=== PATIENT | female | born 1980 | race American Indian/Alaskan Native ===

== ENCOUNTER 2017-11-16 18:31 | Emergency (ER) | payer OTHER ==
[2017-11-16 18:42] VITALS: BP 148/90
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
[2017-11-16] MEDS ORDERED: NORCO 5/325 PO ONE (19:50)
--- NOTE | 2017-11-16 22:43 | XRay Report ---
FINAL REPORT PROCEDURE: XR CLAVICLE LT TECHNIQUE: LEFT clavicle radiographs. HISTORY: bruising and pain COMPARISON: No prior studies are available for comparison. FINDINGS: Fracture (s) and/or Dislocation(s): None. Soft tissues:Normal. Bone mineralization:Normal. Foreign bodies: None. IMPRESSION: Normal Impression.
--- NOTE | 2017-11-16 22:44 | XRay Report ---
FINAL REPORT PROCEDURE: XR SPINE THORACIC 2V TECHNIQUE: Thoracic spine radiographs, including AP and lateral projections. CPT 70745 HISTORY: back pain COMPARISON: No prior studies are available for comparison. FINDINGS: Alignment: Subtle dextroscoliosis is noted involving upper thoracic spine. Vertebral body height: Normal . Disk spaces: Normal . Fracture(s): None . Bone mineralization: Normal . IMPRESSION: No acute abnormality.
--- NOTE | 2017-11-16 22:47 | XRay Report ---
FINAL REPORT PROCEDURE: XR SPINE CERVICAL 2-3V TECHNIQUE: Cervical spine radiographs, AP, lateral, and open-mouth odontoid views. CPT 82703 HISTORY: bilateral trapezius tenderness COMPARISON: No prior studies are available for comparison. FINDINGS: Prevertebral soft tissues: Normal . Alignment: There is loss of cervical lordosis.. Vertebral body heights/Disk spaces: Normal . Fracture(s): None . Facets: Normal . Bone mineralization: Normal . IMPRESSION: Straightening of the cervical spine is most likely secondary to spasm or positioning. Otherwise negative study.
== END 2017-11-16 23:30 | disposition home or self-care (01) ==
LOC: ED 18:31
DX: S29.012A Strain of muscle and tendon of back wall of thorax, initial encounter (principal); M54.2 Cervicalgia; M62.838 Other muscle spasm; F17.200 Nicotine dependence, unspecified, uncomplicated; Z79.899 Other long term (current) drug therapy; V49.09XA Driver injured in collision with other motor vehicles in nontraffic accident, initial encounter; Y93.89 Activity, other specified; Y99.8 Other external cause status; Y92.488 Other paved roadways as the place of occurrence of the external cause
CPT/HCPCS: 72040; 72070

== ENCOUNTER 2020-05-07 12:38 | Emergency (ER) | payer SELFPAY ==
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
[2020-05-07 14:15] LABS: Basophils % (Auto) 0.6 % (0.0-1.8); Eosinophils # (Auto) 0.2 K/mm3 (0.0-0.4); Eosinophils % (Auto) 2.8 % (0.0-4.3); Hematocrit 29.9 % (30.3-42.9); Hemoglobin 9.3 gm/dl (10.1-14.3); Lymphocytes # (Auto) 1.8 K/mm3 (1.2-5.4); Lymphocytes % (Auto) 30.8 % (13.4-35.0); Mean Corpuscular HGB Conc 31 % (30-34); Mean Corpuscular Volume 79 fl (79-97); Monocytes # (Auto) 0.3 K/mm3 (0.0-0.8); Monocytes % (Auto) 4.8 % (0.0-7.3); Platelet Count 183 K/mm3 (140-440); Red Blood Count 3.79 M/mm3 (3.65-5.03)
[2020-05-07 14:16] LABS: Red Cell Distribution Width 21.2 % (13.2-15.2)
[2020-05-07 14:35] LABS: Alanine Aminotransferase 11 units/L (7-56); Albumin 4.2 g/dL (3.9-5); Blood Urea Nitrogen 15 mg/dL (7-17); Calcium 9.4 mg/dL (8.4-10.2); Hemolysis Index 9
--- NOTE | 2020-05-07 14:52 | XRay Report ---
CHEST 2 VIEWS INDICATION / CLINICAL INFORMATION: Chest Pain. FINDINGS: SUPPORT DEVICES: None. HEART / MEDIASTINUM: No significant abnormality. LUNGS / PLEURA: No significant pulmonary or pleural abnormality. No pneumothorax. ADDITIONAL FINDINGS: No significant additional findings. IMPRESSION: 1. No acute findings. Signer Name: Artie Peterson MD Signed: 05/07/2020 2:47 PM Workstation Name: [id number]
[2020-05-07 15:01] LABS: BUN/Creatinine Ratio 25
--- NOTE | 2020-05-07 16:57 | Emergency Department Report ---
ED Chest Pain HPI - General Chief Complaint: Chest Pain Stated Complaint: hypertension Time Seen by Provider: 05/07/20 13:20 Source: patient Mode of arrival: Ambulatory Limitations: No Limitations - History of Present Illness Initial Comments: Patient is 39 years old female with no significant past medical history. Patient stated that she was diagnosed with COVID-19 a month ago. Patient stated that since then she has been having a right chest pain. Patient described her chest pain as sharp with no radiation intermittent. Patient stated that pain increases with movement and improved with remaining still. Patient denied any cough, fever or chills. No shortness of breath. MD Complaint: chest pain -: month(s) Pain Location: right chest Pain Radiation: none Severity: moderate Severity scale (0 -10): 4 Quality: sharp Improves With: remaining still Worsens With: movement - Related Data Previous Rx's Medication Instructions Recorded Last Taken Type Cyclobenzaprine [Flexeril 10 MG 10 mg PO TID PRN #15 tablet 11/16/17 Unknown Rx TAB] Ibuprofen [Motrin 800 MG tab] 800 mg PO Q8HR PRN #15 tablet 11/16/17 Unknown Rx Allergies Allergy/AdvReac Type Severity Reaction Status Date / Time No Known Allergies Allergy Unverified 11/16/17 18:41 Heart Score - HEART Score History: Slightly suspicious EKG: Normal Age: < 45 Risk factors: No known risk factors Troponin: < normal limit HEART Score: 0 - Critical Actions Critical Actions: 0-3 pts:0.9-1.7%risk of adverse cardiac event.Candidate for discharge ED Review of Systems ROS: Stated complaint: hypertension Other details as noted in HPI Comment: All other systems reviewed and negative Constitutional: denies: chills, fever Respiratory: denies: cough, orthopnea, shortness of breath, SOB with exertion, SOB at rest Cardiovascular: chest pain. denies: palpitations, dyspnea on exertion Gastrointestinal: denies: abdominal pain, nausea, vomiting Musculoskeletal: denies: back pain Neurological: denies: headache, weakness, numbness, paresthesias, confusion, abnormal gait ED Past Medical Hx - Past Medical History Previous Medical History?: No - Surgical History Past Surgical History?: No - Social History Smoking Status: Current Every Day Smoker Substance Use Type: None - Medications Home Medications: Home Medications Medication Instructions Recorded Confirmed Last Taken Type Cyclobenzaprine [Flexeril 10 MG 10 mg PO TID PRN #15 tablet 11/16/17 Unknown Rx TAB] Ibuprofen [Motrin 800 MG tab] 800 mg PO Q8HR PRN #15 tablet 11/16/17 Unknown Rx ED Physical Exam - General Limitations: No Limitations General appearance: alert, in no apparent distress - Head Head exam: Present: atraumatic, normocephalic, normal inspection - Eye Eye exam: Present: normal appearance, PERRL - ENT ENT exam: Present: normal exam, normal orophraynx, mucous membranes moist - Neck Neck exam: Present: normal inspection, full ROM. Absent: tenderness, meningismus - Respiratory Respiratory exam: Present: normal lung sounds bilaterally, chest wall tenderness - Cardiovascular Cardiovascular Exam: Present: regular rate, normal rhythm, normal heart sounds - GI/Abdominal GI/Abdominal exam: Present: soft, normal bowel sounds. Absent: distended, tenderness, guarding, rebound, rigid, organomegaly, mass, bruit, pulsatile mass - Extremities Exam Extremities exam: Present: normal inspection, full ROM, normal capillary refill. Absent: pedal edema, calf tenderness - Back Exam Back exam: Present: normal inspection, full ROM. Absent: CVA tenderness (R), CVA tenderness (L) - Neurological Exam Neurological exam: Present: alert, oriented X3, CN II-XII intact - Psychiatric Psychiatric exam: Present: normal affect - Skin Skin exam: Present: warm, intact, normal color ED Course Vital Signs 05/07/20 12:59 Temperature 98.4 F Pulse Rate 73 Respiratory 16 Rate Blood Pressure 141/99 [Right] O2 Sat by Pulse 99 Oximetry ED Medical Decision Making - Lab Data Result diagrams: 05/07/20 13:38 05/07/20 13:38 - EKG Data -: EKG Interpreted by Ca EKG shows normal: sinus rhythm Rate: normal - EKG Data Interpretation: no acute changes - Radiology Data Radiology results: report reviewed - Medical Decision Making Patient is 39 years old female with no significant past medical history. Patient stated that she was diagnosed with COVID-19 a month ago. Patient stated that since then she has been having a right chest pain. Patient described her chest pain as sharp with no radiation intermittent. Patient stated that pain increases with movement and improved with remaining still. Patient denied any cough, fever or chills. No shortness of breath. EKG is unremarkable. Chest x-ray is negative for acute finding. Labs reviewed and is unremarkable including a negative troponin. Heart score is 0. No clinical evidence to suggest pulmonary embolism. Patient chest pain is reproducible. I believe this is most likely pleurisy versus costochondritis however patient advised to follow-up with her primary care physician for outpatient cardiac work-up and advised to return to the ER if she develop any new symptoms. Critical care attestation.: If time is entered above; I have spent that time in minutes in the direct care of this critically ill patient, excluding procedure time. ED Disposition Clinical Impression: Acute chest pain Disposition: DC-01 TO HOME OR SELFCARE Is pt being admited?: No Condition: Stable Instructions: Chest Pain (ED), Nonspecific Chest Pain, Adult, Pleurisy, Costochondritis, [id number] Referrals: PRIMARY CARE, [Primary Care Provider] - 3-5 Days
[2020-05-07 17:44] VITALS: BP 143/92
== END 2020-05-07 17:43 | disposition home or self-care (01) ==
LOC: ED 12:38
DX: R07.89 Other chest pain (principal); F17.200 Nicotine dependence, unspecified, uncomplicated; Z79.899 Other long term (current) drug therapy
CPT/HCPCS: 36415; 71046; 80053; 84484; 84703; 85025; 93005